=== PATIENT | male | born 1980 | race Caucasian/White ===

== ENCOUNTER 2017-01-07 05:20 | Day surgery (SDC) | payer OTHER ==
[2017-01-07] MEDS ORDERED: NEURONTIN400 MG PO (05:49)
[2017-01-07] MEDS ORDERED: TRIAMCINOLONE A15 G1 TOP (05:49)
[2017-01-07] MEDS ORDERED: PROPRANOLOL HCL40 MG PO (05:50)
[2017-01-07] MEDS ORDERED: ALPHA LIPOIC A300 MG PO (05:51)
[2017-01-07] MEDS ORDERED: LISINOPRIL20 MG PO (05:52)
[2017-01-07] MEDS ORDERED: CLOTRIM ANTIFUN15 GM TOP (05:52)
[2017-01-07] MEDS ORDERED: LIPITOR20 MG PO (05:52)
[2017-01-07] MEDS ORDERED: DOK250 MG PO (05:53)
[2017-01-07] MEDS ORDERED: NORVASC10 MG PO (05:53)
[2017-01-07] MEDS ORDERED: HYDROCHLOROTHIA25 MG PO (05:54)
--- NOTE | 2017-01-07 09:30 | NUR ---
01/07/17 0930 Araceli Siu 0904-PATIENT ARRIVED TO PACU ON 6L MASK O2 SAT 100%. PATIENT NONAROUSABLE DRESSING INTACT WITH STERI STRIPS AND MEPILEX DRESSING. GUARDS AT BEDSIDE.
[2017-01-07] MEDS ORDERED: HYDROCODON-ACE1 EA10 PO (10:08)
[2017-01-07] MEDS ORDERED: IBUPROFEN600 MG PO (10:08)
[2017-01-07] MEDS ORDERED: MAPAP325 MG PO (10:08)
--- NOTE | 2017-01-07 11:47 | NUR ---
HAS BEEN UP TO BR VOIDS 200MLS DARK URINE. HAS HAD CRACKERS AND 2 CUPS COFFEE. STATES HES READY TO GO. RATES PAIN AT 5/10 STATES THIS IS ACCEPTABLE.
--- NOTE | 2017-01-07 11:56 | NUR ---
REPORT CALLED TO [facility] CHIKIS MONZON TOOK REPORT QUESTIONS ANSWERED.
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
== END 2017-01-07 11:45 | disposition home or self-care (01) ==
LOC: DS 05:20
PROVIDERS: Surgery
PROC: 0WUF0JZ Supplement Abdominal Wall with Synthetic Substitute, Open Approach (ICD-10-PCS; principal; 2017-01-07 06:45)
PROC: 0YU50JZ Supplement Right Inguinal Region with Synthetic Substitute, Open Approach (ICD-10-PCS; 2017-01-07 06:45)
PROC: 0TJB8ZZ Inspection of Bladder, Via Natural or Artificial Opening Endoscopic (ICD-10-PCS; 2017-01-07 06:45)
DX: K40.90 Unilateral inguinal hernia, without obstruction or gangrene, not specified as recurrent (principal); K43.2 Incisional hernia without obstruction or gangrene; N40.1 Benign prostatic hyperplasia with lower urinary tract symptoms; N13.8 Other obstructive and reflux uropathy; I10 Essential (primary) hypertension; N28.9 Disorder of kidney and ureter, unspecified
CPT/HCPCS: 00910; C1781; J0690; J1644; J2250; J2405; J2704; J2710; J3010